=== PATIENT | female | born 2000 | race Two or more races ===

== ENCOUNTER 2024-04-19 04:58 | Inpatient (IN) | payer MEDICAID, OTHER ==
[~2024-04-19] VITALS: Ht 157.5 cm; Wt 61.2 kg
[2024-04-19] MEDS ORDERED: PENICILLIN G POT 5MIL/D5 50ML 50 ML IV ONE (05:45)
[2024-04-19] MEDS ORDERED: LIDOCAINE 2%HCL (LOCAL ANESTH.) INJ 20ML MDV IJ PRN (05:45)
[2024-04-19] MEDS ORDERED: WITCH HAZEL-GLYCERIN PAD TOP PRN (05:45)
[2024-04-19] MEDS ORDERED: DERMOPLAST 60ML BOTTLE TOP PRN (05:45)
[2024-04-19] MEDS ORDERED: PHISODERM TOP SOLN 240ML BTL TOP PRN (05:45)
[2024-04-19] MEDS ORDERED: LACTATED RINGER'S 1,000 ML IV SCH (05:45)
[2024-04-19] MEDS ORDERED: ERYTHROMY OPTH OINT 5mg/gm 1gm or 3.5gm tube OP ONE (06:15)
[2024-04-19] MEDS ORDERED: ERYTHROMY OPTH OINT 5mg/gm 1gm or 3.5gm tube ONE (06:18)
[2024-04-19 06:35] LABS: Basophils # (auto) 0 10 ^3/uL (0-0.2); Eosinophils # (auto) 0 10 ^3/uL (0-0.8); Eosinophils % (auto) 0.1 % (0.0-7.0)
[2024-04-19 06:39] LABS: Basophils % (auto) 0.1 % (0.0-2.0); Hematocrit 32.2 % (36.0-46.0); Lymphocytes # (auto) 0.9 10 ^3/uL (0.4-5.4); Lymphocytes % (auto) 5.4 % (10.0-50.0); Mean Corpuscular Hemoglobin 22.4 pg (28.0-32.0); Mean Corpuscular Volume 72.2 fL (80.0-100.0); Monocytes # (auto) 0.8 10 ^3/uL (0-1.3); Monocytes % (auto) 4.7 % (0.0-12.0); Neutrophils # (auto) 15.4 10 ^3/uL (1.6-8.6); Neutrophils % (auto) 89.7 % (37.0-80.0); Nucleated Red Blood Cells % 0.1 %; Red Blood Cells 4.46 10^6/uL (4.0-5.20); Red Cell Distribution Width 18.4 % (11.8-14.3); White Blood Cell 17.1 10^3/uL (4.4-10.8)
[2024-04-19 06:48] LABS: Alanine Aminotransferase 14 U/L (7-40); Alkaline Phosphatase 296 U/L (46-116); Anion Gap 15 (5-15); Aspartate Aminotransferase 27 U/L (13-40); BUN/Creatinine Ratio 9.4 (10.0-20.0); Bilirubin, Total 0.7 mg/dL (0.2-1.0); Blood Urea Nitrogen < 5 mg/dL (9-23); Calcium 9.3 mg/dL (8.5-10.1); Carbon Dioxide 17 mmol/L (20-30); Chloride 103 mmol/L (98-107); Glucose 108 mg/dL (74-106); Potassium 3.8 mmol/L (3.5-5.1); Sodium 135 mmol/L (136-145)
[2024-04-19] MEDS: LACT. RINGERS/OXYTOCIN 20UNITS 500 ML IV ONE ×2 (06:53→06:54)
[2024-04-19 06:54] LABS: INR 0.95 (0.9-1.15); Partial Thromboplastin Time 25.9 SEC (24.5-34.5); Prothrombin Time 10.1 sec (9.3-11.8)
[2024-04-19 07:12] LABS: Urine Bacteria None Seen /hpf (None Seen)
[2024-04-19 07:33] LABS: Urine Blood TRACE /uL (Negative); Urine Clarity Clear (Clear); Urine Color Yellow (Yellow); Urine Mucus FEW (None Seen); Urine Protein, UAD 1+ (Negative); Urine Specific Gravity 1.019 (1.001-1.035); Urine Urobilinogen Normal (Negative); Urine WBC 1 /hpf (0 - 5); Urine pH 6.5 (5.0-9.0)
[2024-04-19 07:50] LABS: Amphetamine Screen, Urine Neg (NEGATIVE)
[2024-04-19 07:51] LABS: Benzodiazephine Screen, Urine Neg (NEGATIVE)
[2024-04-19 07:52] LABS: Barbiturate Scree,Urine Neg (NEGATIVE); Cannabinoid Screen, Urine Pos (NEGATIVE); Cocaine Screen, Urine Pos (NEGATIVE); Opiate Scree,Urine Neg (NEGATIVE); Phencyclidine Screen, Urine Neg (NEGATIVE); Protein, Urine 32.4 mg/dL (0.0-11.9)
[2024-04-19 07:55] LABS: Creatinine, Urine 116.35 mg/dL (30.0-125.0); Urine Protein/Creatinine Ratio 0.28
[2024-04-19 08:22] LABS: Hypochromia Moderate; Platelet Estimate Adequate
[2024-04-19] MEDS ORDERED: ONDANSETRON ODT 4 MG TAB PO PRN (08:45)
[2024-04-19] MEDS ORDERED: ACETAMINOPHEN 325 MG TAB PO PRN (08:45)
[2024-04-19 11:10] VITALS: BP 120/77; PULSE 74; RESP 16; TEMP 97.7; O2SAT 97
[2024-04-19 15:00] VITALS: BP 138/85; PULSE 68; RESP 16; TEMP 98.4; O2SAT 100
[2024-04-19 19:00] VITALS: BP 118/72; PULSE 77; RESP 16; TEMP 99; O2SAT 97
[2024-04-19] MEDS: IBUPROFEN 600 MG TAB PO PRN (19:47)
[2024-04-19 23:00] VITALS: BP 113/62; PULSE 80; RESP 16; TEMP 98.3; O2SAT 97
[2024-04-20] MEDS ORDERED: IBU600T PO (01:02)
[2024-04-20] MEDS ORDERED: DOCU-94 PO (01:02)
[2024-04-20 03:00] VITALS: BP 114/72; PULSE 83; RESP 16; TEMP 98.2; O2SAT 97
[2024-04-20] MEDS ORDERED: MEASLES, MUMPS & RUBELLA VAC(MMRII) 0.5ML SC ONE (05:00)
[2024-04-20 06:06] LABS: RPR Non Reactive (Non Reactive)
[2024-04-20 07:00] VITALS: BP 118/84; PULSE 73; RESP 16; TEMP 97.7; O2SAT 97
[2024-04-20 11:00] VITALS: BP 116/74; PULSE 76; RESP 16; TEMP 97.7; O2SAT 97
[2024-04-20 12:07] LABS: Rubella Antibodies, IgG <0.90 index (Immune >0.99)
[2024-04-20 14:06] LABS: Chlamydia Trachomatis, NAA Negative (Negative); Neisseria gonorrhoeae, NAA Negative (Negative)
== END 2024-04-20 15:20 | disposition home or self-care (01) | DRG 560 ==
LOC: LDRP 04:58 → EEVIPCON 05:38 → OBSVTOIN 05:38 → LDRP 11:19
PROVIDERS: ADMIT Obstetrics & Gynecology; ATTEND Obstetrics & Gynecology
PROC: 10E0XZZ Delivery of Products of Conception, External Approach (ICD-10-PCS; principal; 2024-04-19)
DX: O60.14X0 Preterm labor third trimester with preterm delivery third trimester, not applicable or unspecified (principal); Z37.0 Single live birth; O99.324 Drug use complicating childbirth; F19.90 Other psychoactive substance use, unspecified, uncomplicated; Z3A.34 34 weeks gestation of pregnancy
CPT/HCPCS: 36415; 59025; 59409; 76815; 80053; 80307; 81001; 82570; 84156; 84550; 85025; 85610; 85730; 86592; 86703; 86762; 86803; 86850; 86900; 86901; 87340; 94760; 96360; 96365; 96366; G0378